=== PATIENT | female | born 1950 | race Caucasian/White ===

== ENCOUNTER 2023-05-18 10:02 | Outpatient (OUT) | payer MEDICARE, BC, SELFPAY ==
--- NOTE | 2023-05-18 10:13 | CT_ITS ---
The [address] [address] Patient Name: GHANSHYAM LEHMAN MRN: [id number] date: 1950 Sex: F Assigned Patient Location: CT Current Patient Location: CT Accession/Order Number: [id number] Exam Date: 05/18/2023 10:18 Report Date: 05/18/2023 10:52 At the request of: JARED ESPINAL Procedure: CT sinus wo con CT sinus wo con, 05/18/2023 10:18 AM EST INDICATION: Chronic Right Maxillary Sinusitis J32.0 COMPARISON: There is no appropriate prior study for comparison. TECHNIQUE: Axial images of 1 mm were obtained from the base of the skull to vertex without contrast with coronal and sagittal reconstruction. Dose reduction techniques were achieved by using automated exposure control and/or adjustment of mA and/or kV according to patient size and/or use of iterative reconstruction technique. FINDINGS: No abnormality under the marker over the right maxillary sinus is noted. The paranasal sinuses are clear. There is no pneumatization of the supraorbital anterior ethmoidal air cells. The frontal and sphenoethmoidal recesses are patent. No abnormality of no maxillary ostium and ethmoidal infundibulum is noted. The lamina papyracea is unremarkable bilaterally. Left Elizabeth bullosa is noted. There is no septal deviation. The carotid arteries have normal intracranial pathway. The fovea ethmoidalis is symmetric. No pneumatization of anterior clinoid process is noted. The olfactory fossa measures 3.7 mm . The optic nerves show bone coverage. There is no suspicious osteolytic or osteoblastic lesion. The visualized portions of orbits and mastoid air cells are unremarkable. No suprahyoid lymphadenopathy is noted. CT/CT sinus wo con IMPRESSION: No definite abnormality over the right maxillary sinus is noted. No underlying sinus disease. Electronically authenticated by: JAQUI BETANCOURT Date: 05/18/2023 10:52
== END 2023-05-18 10:03 | disposition home or self-care (01) ==
LOC: CT 10:02
PROVIDERS: PCP Family Medicine; Visit Provider Family Medicine
DX: J32.0 Chronic maxillary sinusitis (principal)
CPT/HCPCS: 70486

== ENCOUNTER 2023-06-01 10:15 | Outpatient (OUT) | payer MEDICARE, BC, SELFPAY ==
--- NOTE | 2023-06-01 10:20 | MM_ITS ---
Patient Name: GHANSHYAM LEHMAN MR#: [id number] : 1950 Exam Date: 06/01/2023 Ordering Doctor: DR Love Pendleton M.D. RADIOLOGY REPORT PROCEDURE: MM TOMOSYNTHESIS SCREENING BI COMPARISON: MG MAMM DIAGNOSTIC 3D CAL CAD, 05/30/2022. MG MAMM SCREEN 3D CAL CAD, 02/27/2021. MG MAMM SCREEN CAL W CAD, 06/28/2019. MG MAMM CAL SCRN W CAD DIG, 04/15/2016. INDICATIONS: Screening Calculator Name NCI Breast Cancer Risk Assessment Tool 5 Year Breast Cancer Risk 1.90% Lifetime Breast Cancer Risk 5.60% Personal Breast Cancer No Personal Ovarian Cancer No Treatments None Family Cancers Grandmother-maternal with ovarian cancer at age 55; Mother with uterine cancer at age 47; Aunt-maternal with breast cancer at age 65; Sister with metastatic,unknown primary cancer at age 64. LOCATION: The [facility] BREAST COMPOSITION: Scattered areas fibroglandular density. FINDINGS: DIAGNOSTIC CATEGORY 2--BENIGN FINDING: RIGHT BREAST: No significant suspicious finding. No significant change has occurred. LEFT BREAST: No significant suspicious finding. Scattered benign-appearing lymph nodes are present. No significant change has occurred. RECOMMENDATIONS: ROUTINE MAMMOGRAM AND CLINICAL EVALUATION IN 12 MONTHS. PLEASE NOTE: A NORMAL MAMMOGRAM DOES NOT EXCLUDE THE POSSIBILITY OF BREAST CANCER. A CLINICALLY SUSPICIOUS PALPABLE LUMP SHOULD BE BIOPSIED. Dictated by: Enio Soares M.D. on 06/02/2023 at 10:24 Approved by: Enio Soares M.D. on 06/02/2023 at 11:30
== END 2023-06-01 10:16 | disposition home or self-care (01) ==
LOC: MAMMO 10:15
PROVIDERS: PCP Family Medicine; Visit Provider Family Medicine
DX: Z12.31 Encounter for screening mammogram for malignant neoplasm of breast (principal); Z80.41 Family history of malignant neoplasm of ovary; Z80.8 Family history of malignant neoplasm of other organs or systems; Z80.3 Family history of malignant neoplasm of breast
CPT/HCPCS: 77063; 77067

== ENCOUNTER 2023-06-02 21:19 | Emergency (ER) | payer MEDICARE, BC, SELFPAY ==
[2023-06-02] VITALS (11 sets, daily range): BP systolic 147–165; BP diastolic 81–92; PULSE 72–90; RESP 14–26; TEMP 36.4; O2SAT 99; BMI 36.8
--- NOTE | 2023-06-02 22:02 | ECG_ITS ---
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
--- NOTE | 2023-06-02 22:02 | CT_ITS ---
The [address] [address] Patient Name: GHANSHYAM LEHMAN MRN: [id number] date: 1950 Sex: F Assigned Patient Location: ER Current Patient Location: ER Accession/Order Number: [id number] Exam Date: 06/02/2023 22:10 Report Date: 06/02/2023 22:44 At the request of: CARO MARKER Procedure: CT head/brain wo con EXAMINATION: CT head/brain wo con, , 06/02/2023 10:10 PM EST INDICATION: AMS HISTORY: Ordering Provider Reason for Exam: AMS Technologist Note: Additional: COMPARISON: None. TECHNIQUE: CT scan of the head was performed without IV contrast. CT dose reduction technique was used, including Automated Exposure Control. FINDINGS: Ventricles and sulci are normal in size and configuration. No extra-axial collection. No intracranial hemorrhage. No mass effect or edema. No CT evidence of large territorial infarction. Visualized paranasal sinuses are well aerated. Mastoids are clear. Calvarium is unremarkable. CT/CT head/brain wo con IMPRESSION: No intracranial hemorrhage or mass effect. Electronically authenticated by: MILA BERG Date: 06/02/2023 22:44
--- NOTE | 2023-06-02 22:02 | ED_ITS ---
HPI - Altered Mental Status General Chief Complaint: Altered Mental Status Stated Complaint: MEMORY ISSUES Time Seen by Provider: 06/02/23 21:28 Source: family Mode of arrival: walk-in History of Present Illness HPI narrative: This 72-year-old female is brought to the emergency department by her . The reports that the patient had a very busy day today and after dinner went into the shower, she takes extremely hot showers, after her shower she came downstairs and was awake, alert but amnestic to the events of the day. The states that she get up around 4 AM to go filler picker their granddaughter around 5 AM. She then went home and picked up the dog and took the dog to the groomer and took her to the eye doctor. She picked her up from the eye doctor and her dog from the groomer and went home and made dinner. They had dinner with her son. After dinner she went into the hot shower and then could not recall the events of the day. They did not have any sexual intercourse today. The patient does state that she had a ocular migraine today which is when she sees floaters in her eyes. This does not cause her any pain and has since resolved. She has no chest pain or shortness of breath. She does feel mildly nauseated. She denies any weakness numbness or tingling. She dressed herself after taking a shower and has been ambulatory since that time. There is been no recent falls. She has not had a fever. She does get routine eye exams and has not had any visual changes besides seeing floaters which occurs from time to time. Timing confirmed by: Reports spouse Related Data Home Medications Medication Instructions Recorded Confirmed atenolol 50 mg tablet 50 mg PO Q24H 06/02/23 06/02/23 Allergies Allergy/AdvReac Type Severity Reaction Status Date / Time No Known Drug Allergies Allergy Verified 06/02/23 21:29 Review of Systems ROS Status of ROS 10 or more systems reviewed and unremark able except as noted in history and below [facility] Social History Smoking status: Never smoker Exam Narrative Exam Narrative: Nurses note and vital signs reviewed and patient is not hypoxic.Blood pressure is mildly elevated at 165/92 General: Alert, pleasant, nontoxic female resting currently on the stretcher, she admits to feeling anxious, no respiratory distress, GCS 15 Skin: Warm, dry, no pallor noted. There is no rash noted. Head: Normocephalic, atraumatic Eye: Normal conjunctiva, no drainage, EOMI. PERRL, No diplopia, vision is grossly intact Ears, Nose, Mouth, and Throat: oral mucosa is moist. No swelling of the tongue, uvula or pharyngeal soft tissues, no facial droop Cardiovascular: Regular Rate and Rhythm S1S2, no murmurs, rubs or gallops, pulses are brisk and equal bilaterally Respiratory: Patient is in no distress, no accessory muscle use, lungs are clear to auscultation, no wheezing, rales or rhonchi Back: non-tender, no CVA tenderness bilaterally to percussion. GI: Normal bowel sounds, no tenderness to palpation, no masses appreciated. No rebound, guarding, or rigidity noted. 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, negative pronator drift, upper and lower extremity strength and sensation is intact, she is ambulatory with a steady gait, no facial droop Psychiatric: Cooperative, anxious Constitutional Vital Signs, click to edit/add: Last Vital Signs Temp 97.6 F 06/02/23 21:23 Pulse 73 06/02/23 23:47 Resp 22 06/02/23 23:47 BP 147/81 H 06/02/23 23:47 Pulse Ox 99 06/02/23 21:23 O2 Del Method Room Air 06/02/23 21:23 Course Vital Signs Vital signs: Vital Signs Temperature 97.6 F 06/02/23 21:23 Pulse Rate 90 06/02/23 21:23 Respiratory Rate 18 06/02/23 21:23 Blood Pressure 165/92 H 06/02/23 21:23 Pulse Oximetry 99 06/02/23 21:23 Oxygen Delivery Method Room Air 06/02/23 21:23 Temperature 97.6 F 06/02/23 21:23 Pulse Rate 73 06/02/23 23:47 Respiratory Rate 22 06/02/23 23:47 Blood Pressure 147/81 H 06/02/23 23:47 Pulse Oximetry 99 06/02/23 21:23 Oxygen Delivery Method Room Air 06/02/23 21:23 MDM - Altered Mental Status MDM Narrative Medical decision making narrative: This 72-year-old female was brought to the emergency department by her for evaluation of acute memory loss. The patient had an extremely busy day starting at 4 AM when she wakes up to filler picker her granddaughter at 7 AM. She apparently keeps her granddaughter in the morning until school and then took her dog just a groomer, her to the eye doctor, picked up her from the eye doctor and her dog from the groomer then went home and make dinner. She did the dishes after dinner, went upstairs to take a shower, came downstairs and was confused as to the events of the day. The patient did have what she describes as an ocular migraine earlier today when she sees floaters in her eyes. She states she is not having that now and it does not cause her any headaches. She is not having any blurred vision, slurred speech, focal weakness numbness or tingling. Her NIH stroke scale is 0. Clinically my suspicion was that she was having an episode of transient global amnesia. This was discussed with the patient and her . I explained to them that it was a diagnosis of exclusion and should resolve over a short period of time. The patient was taken to the CT scanner and had a CT scan of the brain done that was negative for acute findings. EKG was a normal sinus rhythm without acute findings. Routine labs were ordered and are reviewed. She has a normal troponin. Normal electrolytes. Normal white count and hemoglobin. Her urine did show 5-10 white blood cells per high-power field however there are screams epithelial cells in the urine and culture is pending. Clinically the patient is not experiencing any urinary tract infection symptoms. On reevaluation after IV fluids the patient was regaining her memory of the events of the day. The patient's son came to the emergency department and she then remembered him being present for dinner. She remembered taking the dog's to the groomer. She is less anxious and her memory is improving. I had a printed a description of transient global amnesia from the [facility] for the patient and her to review. They verbalize that this does sound like the event she had today. She will be discharged home to follow up closely with her family physician. I did encourage her to follow closely with Dr. Amaya if she would want to know about this episode and may request her to have additional workup related to the event. The patient and her are in agreement with this plan. My suspicion is that the patient was somewhat stressed due to the events of the day and then took a hot shower causing vasodilation and blood to be shunted away from her brain which causes the TGA. She does not appear to be having a stroke or any other acute medical emergency at this time and was discharged home. Medical Records Medical records narrative: [place] [address] CT Scan Report Signed Patient: GHANSHYAM LEHMAN MR#: [id number] : 1950 Acct:[id number] Age/Sex: 72 / F ADM Date: 06/02/23 Loc: ER Attending Dr: Ordering Physician: Carisa Reinoso Date of Service: 06/02/23 Procedure(s): CT head/brain wo con Accession Number(s): [id number] cc: Love Pendleton M.D.~ The [place] [id number] Patient Name: GHANSHYAM LEHMAN MRN: [id number] date: 1950 Sex: F Assigned Patient Location: ER Current Patient Location: ER Accession/Order Number: [id number] Exam Date: 06/02/2023 22:10 Report Date: 06/02/2023 22:44 At the request of: CARISA REINOSO Procedure: CT head/brain wo con EXAMINATION: CT head/brain wo con, , 06/02/2023 10:10 PM EST INDICATION: AMS HISTORY: Ordering Provider Reason for Exam: AMS Technologist Note: Additional: COMPARISON: None. TECHNIQUE: CT scan of the head was performed without IV contrast. CT dose reduction technique was used, including Automated Exposure Control. FINDINGS: Ventricles and sulci are normal in size and configuration. No extra-axial collection. No intracranial hemorrhage. No mass effect or edema. No CT evidence of large territorial infarction. Visualized paranasal sinuses are well aerated. Mastoids are clear. Calvarium is unremarkable. CT/CT head/brain wo con IMPRESSION: No intracranial hemorrhage or mass effect. Electronically authenticated by: MILA BERG Date: 06/02/2023 22:44 Lab Data Labs: Lab Results 06/02/23 06/02/23 Range/Units 21:45 22:09 WBC 9.2 (4.0-11.0) 10^3/uL RBC 4.80 (4.20-5.40) 10^6/uL Hgb 14.1 (12.0-16.0) g/dL Hct 43.3 (36.0-48.0) % MCV 90.2 (81.0-99.0) fL MCH 29.4 (26.7-34.0) pg MCHC 32.6 (29.9-35.2) g/dL RDW 12.8 (11.0-15.0) % Plt Count 214 (150-450) 10^3/uL MPV 9.2 L (9.5-13.5) fL Neut % (Auto) 48.2 (43.0-75.0) % Lymph % (Auto) 39.0 (20.5-60.0) % [place] % (Auto) 10.4 (1.7-12.0) % Eos % (Auto) 1.7 (0.9-7.0) % Baso % (Auto) 0.4 (0.2-2.0) % Neut # (Auto) 4.4 (1.4-6.5) 10^3/uL Lymph # (Auto) 3.6 (1.2-3.8) 10^3/uL [place] # (Auto) 1.0 H (0.3-0.8) 10^3/uL Eos # (Auto) 0.2 (0.0-0.7) 10^3/uL Baso # (Auto) 0.0 (0.0-0.1) 10^3/uL Abs Immat Gran (auto) 0.03 (0.00-0.03) 10^3/uL Imm/Tot Granulo (auto) 0.3 (0.0-0.5) % Sodium 141 (136-145) mmol/L Potassium 3.8 (3.5-5.1) mmol/L Chloride 104 (98-107) mmol/L Carbon Dioxide 27.8 (21.0-32.0) mmol/L Anion Gap 13.0 BUN 25.0 H (7.0-18.0) mg/dL Creatinine 0.94 (0.55-1.02) mg/dL Est GFR ( Amer) >60 (>=60) Est GFR (Non-Af Amer) 59 L (>=60) BUN/Creatinine Ratio 26.6 Glucose 112 H (74-106) mg/dL Calcium 8.9 (8.5-10.1) mg/dL Total Bilirubin 0.3 (0.2-1.0) mg/dL AST 16 (15-37) U/L ALT 23 (14-59) U/L Alkaline Phosphatase 101 (46-116) U/L Ammonia 14 (11-32) umol/L Troponin I High Sens 10.6 (4.0-51.3) pg/mL Total Protein 7.9 (6.4-8.2) g/dL Albumin 3.6 (3.4-5.0) g/dL Globulin 4.3 g/dL Albumin/Globulin Ratio 0.8 Urine Color Lt. yellow (YELLOW) Urine Clarity Clear (CLEAR) Urine pH 6.0 (5.0-9.0) Ur Specific [place] <=1.005 A (1.005-1.025) Urine Protein Negative (NEG/TRACE) mg/dL Urine Glucose (UA) Negative (NEGATIVE) mg/dL Urine Ketones Negative (NEGATIVE) mg/dL Urine Occult Blood Small A (NEGATIVE) Urine Nitrite Negative (NEGATIVE) Urine Bilirubin Negative (NEGATIVE) Urine Urobilinogen 0.2 (0.2-1.0) EU/dL Ur Leukocyte Esterase Small A (NEGATIVE) Urine RBC 0-2 (0-2) #/HPF Urine WBC 5-10 A (NONE SEEN) #/HPF Ur Squamous Epith Cells Few A (NONE/RARE) #/LPF Urine Crystals None seen (None Seen) #/HPF Urine Bacteria Trace A (NONE SEEN) #/HPF Urine Casts None seen (NONE SEEN) #/LPF Urine Mucus None seen (NONE SEEN) ECG Data Attestation: I personally reviewed and interpreted this ECG as follows: (Normal sinus rhythm 82 bpm, normal axis, normal intervals, no acute ST segment elevation or T-wave inversion) Discharge Plan Discharge Chief Complaint: Altered Mental Status Clinical Impression: Amnesia, global, transient, Altered mental status Patient Disposition: Home, Self-Care Time of Disposition Decision: 00:15 Condition: Good Prescriptions / Home Meds: No Action atenolol 50 mg tablet 50 mg PO Q24H Instructions: Transient Global Amnesia (ED) Stand Alone Forms: Portal Instructions Referrals: Love Pendleton MD [Primary Care Provider] - 1 week Discharge Date/Time: 06/03/23 00:43
[2023-06-02 22:08] LABS: Basophils Percent Auto 0.4 % (0.2-2.0); Eosinophils Absolute Auto 0.2 10^3/uL (0.0-0.7); Eosinophils Percent Auto 1.7 % (0.9-7.0); Hematocrit 43.3 % (36.0-48.0); Hemoglobin 14.1 g/dL (12.0-16.0); Immature Granulocytes Abs Auto 0.03 10^3/uL (0.00-0.03); Immature Granulocytes Pct Auto 0.3 % (0.0-0.5); Lymphocytes Absolute Auto 3.6 10^3/uL (1.2-3.8); Mean Corpuscular HGB Conc 32.6 g/dL (29.9-35.2); Mean Corpuscular Hemoglobin 29.4 pg (26.7-34.0); Mean Corpuscular Volume 90.2 fL (81.0-99.0); Mean Platelet Volume 9.2 fL (9.5-13.5); Monocytes Percent Auto 10.4 % (1.7-12.0); Neutrophils Absolute Auto 4.4 10^3/uL (1.4-6.5); Neutrophils Percent Auto 48.2 % (43.0-75.0); Platelet Count 214 10^3/uL (150-450); Red Cell Distribution Width 12.8 % (11.0-15.0); White Blood Count 9.2 10^3/uL (4.0-11.0)
[2023-06-02 22:09] LABS: Bilirubin Urine NEGATIVE (NEGATIVE); Blood Urine SMALL (NEGATIVE); Clarity Urine CLEAR (CLEAR); Color Urine LT. YELLOW (YELLOW); Glucose Urine UA NEGATIVE (NEGATIVE); Ketones Urine NEGATIVE (NEGATIVE); Leukocyte Esterase Urine SMALL (NEGATIVE); Nitrite Urine NEGATIVE (NEGATIVE); Protein Urine NEGATIVE (NEG/TRACE); Specific Gravity Urine <=1.005 (1.005-1.025); Urobilinogen Urine 0.2 EU/dL (0.2-1.0)
[2023-06-02 22:23] LABS: Alanine Aminotransferase 23 U/L (14-59); Albumin Globulin Ratio 0.8; Albumin Level 3.6 g/dL (3.4-5.0); Alkaline Phosphatase 101 U/L (46-116); Aspartate Amino Transferase 16 U/L (15-37); BUN Creatinine Ratio 26.6; Bacteria Urine TRACE #/HPF (NONE SEEN); Bilirubin Total 0.3 mg/dL (0.2-1.0); Calcium 8.9 mg/dL (8.5-10.1); Carbon Dioxide 27.8 mmol/L (21.0-32.0); Cast Seen? NONE SEEN #/LPF (NONE SEEN); Chloride 104 mmol/L (98-107); Crystals Seen? None Seen #/HPF (None Seen); Estimated GFR (African America >60 (>=60); Estimated GFR (Non-African Ame 59 (>=60); Globulin 4.3 g/dL; Glucose 112 mg/dL (74-106); Mucus Urine NONE SEEN (NONE SEEN); Potassium 3.8 mmol/L (3.5-5.1); RBC Urine 0-2 #/HPF (0-2); Sodium 141 mmol/L (136-145); Squamous Epithelial Cell Urine FEW #/LPF (NONE/RARE); Total Protein 7.9 g/dL (6.4-8.2); Troponin I High Sensitivity 10.6 pg/mL (4.0-51.3)
[2023-06-02 22:28] LABS: Ammonia 14 umol/L (11-32)
[2023-06-02] MEDS: ONDANSETRON PF 4 MG/2 ML VIAL IV (22:32)
[2023-06-02] MEDS: 0.9 % SODIUM CHLORIDE 1,000 ML 1000 ML IV (22:32)
--- NOTE | 2023-06-02 22:44 | PC.NURSE ---
patients spouse states patient was watching her son's band performance and couldn't remember that he had one today. states she also could was unsure about what day it was and things that she was doing tomorrow which is abdominal. patient a&o to person and place. when asked who the president is patient states she wants to say [place] . patients states they were very busy today, when asked what the patient did today she could not recall any of the many errands that she did. she believed she did not run any errands today. patient did remember what she had for dinner. denies any issues with urination or abnormalities. patients spouse concerened with dementia, states this is similar to how the patient mother was acting when she was diagnosed. patient only takes one mediation. no hx of blood sugar abnormalities. patient has steady gait, no facial discrepancies or slurred speech. states she feels nauseous and keeps staying she is scared that she does not remember. iv established, labs drawn
== END 2023-06-03 00:43 | disposition home or self-care (01) ==
PROVIDERS: Emergency Provider Emergency Medicine; PCP Family Medicine
DX: G45.4 Transient global amnesia (principal)
CPT/HCPCS: 36415; 70450; 80053; 81001; 82140; 84484; 85025; 93005; 96361; 96374; 99285

== ENCOUNTER 2024-06-08 09:46 | Outpatient (OUT) | payer MEDICARE, BC, SELFPAY ==
--- NOTE | 2024-06-08 09:49 | MM_ITS ---
Patient Name: GHANSHYAM LEHMAN MR#: [id number] : 1950 Exam Date: 06/08/2024 Ordering Doctor: DR Love Pendleton M.D. RADIOLOGY REPORT PROCEDURE: MM TOMOSYNTHESIS SCREENING BI COMPARISON: MG MAMM DIAGNOSTIC 3D CAL CAD, 05/30/2022. MM TOMOSYNTHESIS SCREENING BI, 06/01/2023. INDICATIONS: Screening Calculator Name NCI Breast Cancer Risk Assessment Tool 5 Year Breast Cancer Risk 1.90% Lifetime Breast Cancer Risk 5.40% Personal Breast Cancer No Personal Ovarian Cancer No Treatments None Family Cancers Grandmother-maternal with ovarian cancer at age 55; Mother with uterine cancer at age 47; Aunt-maternal with breast cancer at age 65; Sister with metastatic,unknown primary cancer at age 64. LOCATION: [facility] BREAST COMPOSITION: There are scattered areas of fibroglandular density. FINDINGS: DIAGNOSTIC CATEGORY 2--BENIGN FINDING. NO CHANGE FROM COMPARISON. Scattered benign-appearing calcifications are present. Scattered benign-appearing nodules are present. Scattered benign-appearing lymph nodes are present. RIGHT BREAST: No significant suspicious finding. LEFT BREAST: No significant suspicious finding. RECOMMENDATIONS: ROUTINE MAMMOGRAM AND CLINICAL EVALUATION IN 12 MONTHS. PLEASE NOTE: A NORMAL MAMMOGRAM DOES NOT EXCLUDE THE POSSIBILITY OF BREAST CANCER. A CLINICALLY SUSPICIOUS PALPABLE LUMP SHOULD BE BIOPSIED. Dictated by: Nawaf Mitchell MD on 06/08/2024 at 12:32 Approved by: Nawaf Mitchell MD on 06/08/2024 at 12:34
--- OUTSIDE RECORDS SUMMARY | 2024-06-08 09:49 | XMS_ITS | CCD ---
Author Organization [facility] Care Team Providers Care Ticket Clerk Name Role Phone PHYSICIAN, DEFAULT Unavailable Unavailable PHYSICIAN, DEFAULT Unavailable Unavailable REQUEST, DR NONE LISTED Admitting Unavaila ble REQUEST, DR DOWNING LISTED Attending Unavaila ble TEDDY, DR LOVE Baires Primary Care Unavailable REQUEST, DR DOWNING LISTED Consulting Unavaila humera PENDLETON, DR LOVE Baires Admitting Unavailable PENDLETON, DR LOVE Baires Attending Unavailable PENDLETON, DR LOVE Baires Primary Care Unavailable ERNIE, DR ENIO Tesfaye Consulting Unavailable PENDLETON, DR LOVE Baires Consulting Unavailable PendletonLove Allergies Allergy Classification Reported Allergen(s) Allergy Type Date of Onset Reaction(s) Facility (3 sources) patient allergy list reviewed by nurse or physicia Propensity to adverse reactions Comment:Done [facility] Other (3 sources) Allergies Reconciled Propensity to adverse reactions Unknown [facility] Other Medications Current Medications Medication Drug Class(es) Dates Sig (Normalized) Sig (Original) atenolol 50 mg oral tablet (6 sources) beta-Adrenergic Claire Start: 08-17-2023 End: 02-16-2024 take 1 tablet by mouth once daily Atenolol 50 mg tablet Active 50 MG PO Daily February 16, 2024 7:31am Start: 08-25-2022 take 1 tablet by bert th every twenty-four hours Atenolol 50 MG 1 tablet Orally Once a day for 90 days Jul, Active azithromycin 250 mg oral tablet (1 source) Macrolide Antimicrobial Start: 09-15-2022 Azithromycin 250 MG as directed Orally 2 tabs po today, then 1 tab daily x 4 more days for 5 Aug, Active ciprofloxacin 3 mg/ml ophthalmic solution (1 source) Quinolone Antimicrobial Start: 09-15-2022 Ciprofloxacin HCl 0. 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 Heart valve disorders (3 sources) Mitral valve disorder; Translations: [Nonrheumatic mitral (valve) prolapse] Onset: 05-28-2018 Chronic Hemorrhoids (3 sources) Internal hemorrhoids grade III; Translations: [Third degree hemorrhoids] Episodic Immunizations and screening for infectious disease (3 sources) Vaccination given; Translations: [Encounter for immunization] Episodic Inflammation; infection of eye (except that caused by tuberculosis or sexually transmitteddisease) (1 source) Unspecified acute conjunctivitis, left eye Episodic Nonmalignant breast conditions (11 sources) Mastodynia; Translations: [Pain of breast] Onset: 05-30-2022 Episodic Other circulatory disease (3 sources) Elevated blood-pressure reading without diagnosis of hypertension; Translations: [Elevated blood-pressure reading, without diagnosis of hypertension] Episodic Other non-traumatic joint disorders (7 sources) Arthralgia of the lower leg; Translations: [Pain in right knee] Episodic Other non-traumatic joint disorders (7 sources) Arthralgia of the ankle and/or foot; Translations: [Pain in right ankle and joints of right foot] Episodic Other nutritional; endocrine; and metabolic disorders (6 sources) Obese class II; Translations: [Body mass index 37.0-37.9, adult] Onset: 06-09-2017 Chronic Other screening for suspected conditions (not mental disorders or infectious disease) (3 sources) Encounter for screening mammogram for malignant neoplasm of breast; Translations: [Patient encounter status] Episodic Other skin disorders (3 sources) Localized swelling, mass and lump, lower limb, bilateral; Translations: [Localized swelling, mass and lump, lower limb, bilateral] Episodic Other upper respiratory infections (4 sources) Chronic right maxillary sinusitis; Translations: [Chronic maxillary sinusitis] Chronic Other upper respiratory infections (1 source) Acute maxillary sinusitis, unspecified Episodic Residual codes; unclassified (3 sources) Tobacco user; Translations: [Tobacco use] Episodic Transient cerebral ischemia (2 sources) Transient global amnesia; 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 Admission #: [id number] Family : Order #: [id number] CLICK HERE TO VIEW EXAM RADIOLOGY REPORT PROCEDURE: MAMMOGRAM DIAGNOSTIC 3D BILATERAL CAD COMPARISON: MG MAMM SCREEN CAL W CAD, 06/28/2019. MG MAMM SCREEN CAL W CAD, 06/24/2018. MG MAMM SCREEN CAL W CAD, 06/15/2017. MG MAMM SCREEN 3D CAL CAD, 02/27/2021. INDICATIONS: Pain of breast Calculator Name NCI Breast Cancer Risk Assessment Tool 5 Year Breast Cancer Risk 1.90% Lifetime Breast Cancer Risk 5.90% Personal Breast Cancer No Personal Ovarian Cancer No Treatments None Family Cancers Grandmother-maternal with ovarian cancer at age 55; Mother with uterine cancer at age 47; Aunt-maternal with breast cancer at age 65; Sister with metastatic,unknown primary cancer at age 64. LOCATION: [facility] BREAST COMPOSITION: Scattered areas fibroglandular density. FINDINGS: DIAGNOSTIC CATEGORY 2--BENIGN FINDING: RIGHT BREAST: No significant suspicious finding. No significant change has occurred. LEFT BREAST: No significant suspicious finding. Stable benign-appearing lymph node posterior upper-outer quadrant. No significant change has occurred. RECOMMENDATIONS: ROUTINE MAMMOGRAM AND CLINICAL EVALUATION IN 12 MONTHS. PLEASE NOTE: A NORMAL MAMMOGRAM DOES NOT EXCLUDE THE POSSIBILITY OF BREAST CANCER. A CLINICALLY SUSPICIOUS PALPABLE LUMP SHOULD BE BIOPSIED. Dictated by: Enio Soares M.D. on 05/30/2022 at 10:54 Approved by: Enio Soares M.D. on 05/30/2022 at 11:00 Normal [facility] CBC AUTO DIFFon 05-17-2022 BASO # 0.0 103/ul Normal 0.0-0.1 [facility] Comment on above: Performed By: #### D ATCBC #### [facility] [address] [place] [address] Dr. Quincy Rock Basophils/100 WBC (Bld) 0.4 % Normal 0.2-2.0 [facility] Comment on above: Performed By: #### D ATCBC #### [facility] [address] [place] [address] Dr. Quincy Rock EO # 0.1 103/ul Normal 0.0-0.7 [facility] Comment on above: Performed By: #### D ATCBC #### [facility] [address] [place] [address] Dr. Quincy Rock Eosinophils/100 WBC (Bld) 1.8 % Normal 0.9-7.0 [facility] Comment on above: Performed By: #### D ATCBC #### [facility] [address] [place] [address] Dr. Quincy Rock Erythrocyte distribution width (RBC) [Ratio] 12.9 % Normal 11.0-15.0 [facility] Comment on above: Performed By: #### D ATCBC #### [facility] [address] [place] [address] Dr. Quincy Rock Hematocrit (Bld) [Volume fraction] 42.3 % Normal 36.0-48.0 [facility] Comment on above: Performed By: #### D ATCBC #### [facility] [address] [place] [address] Dr. Quincy Rock Hemoglobin (Bld) [Mass/Vol] 14.0 g/dL Normal 12.0-16.0 [facility] Comment on above: Performed By: #### D ATCBC #### [facility] [address] [place] [address] Dr. Quincy Rock IG # 0.01 10e3/ul Normal 0.00-0.03 [facility] Comment on above: Performed By: #### D ATCBC #### [facility] [address] [address] [address] Quincy Rock IG % 0.2 % Normal 0.0-0.5 [facility] Comment on above: Performed By: #### D ATCBC #### [facility] [address] [address] [address] Quincy Rock LYMPH # 2.2 103/ul Normal 1.2-3.8 [facility] Comment on above: Performed By: #### D ATCBC #### [facility] [address] [place] [address] Dr. Quincy Rock Lymphocytes/100 WBC (Bld) 39.7 % Normal 20.5-60.0 [facility] Comment on above: Performed By: #### D ATCBC #### [facility] [address] [place] [address] Dr. Quincy Rock MCH (RBC) [Entitic mass] 28.8 pg Normal 26.7-34.0 [facility] Comment on above: Performed By: #### D ATCBC #### [facility] [address] [place] [address] Dr. Quincy Rock MCHC (RBC) [Mass/Vol] 33.1 g/dL Normal 29.9-35.2 [facility] Comment on above: Performed By: #### D ATCBC #### [facility] [address] [place] [address] Dr. Quincy Rock MCV (RBC) [Entitic vol] 87.0 fL Normal 81.0-99.0 [facility] Comment on above: Performed By: #### D ATCBC #### [facility] [address] [place] [address] Dr. Quincy Rock MONO # 0.5 103/ul Normal 0.3-0.8 [facility] Comment on above: Performed By: #### D ATCBC #### [facility] [address] [place] [address] Dr. Quincy Rock Monocytes/100 WBC (Bld) 8.5 % Normal 1.7-12.0 [facility] Comment on above: Performed By: #### D ATCBC #### [facility] [address] [address] [address] Quincy Rock NEUT # 2.7 103/ul Normal 1.4-6.5 [facility] Comment on above: Performed By: #### D ATCBC #### [facility] [address] [address] [address] Quincy Rock Neutrophils/100 WBC (Bld) 49.4 % Normal 43.0-75.0 [facility] Comment on above: Performed By: #### D ATCBC #### [facility] [address] [address] [address] Quincy Rock Platelet mean volume (Bld) [Entitic vol] 8.9 fL Critically low 9.5-13.5 [facility] Comment on above: Performed By: #### D ATCBC #### [facility] [address] [address] [address] Quincy Rock PLT 212 103/ul Normal 150-450 [facility] Comment on above: Performed By: #### D ATCBC #### [facility] [address] [address] [address] Quincy Rock RBC 4.86 106/ul Normal 4.20-5.40 [facility] Comment on above: Performed By: #### D ATCBC #### [facility] [address] [address] [address] Quincy Rock WBC 5.4 103/ul Normal 4.0-11.0 [facility] Comment on above: Performed By: #### D ATCBC #### [facility] [address] [address] [address] Quincy Rock CLEMENTINE- BMP WITH LIPIDon 2021 Anion gap [Moles/Vol] 8.8 mmol/L Normal [facility] Comment on above: Performed By: #### D ATBMP #### [facility] [address] [address] [address] Quincy Rock Calcium [Mass/Vol] 8.9 mg/dL Normal 8.5-10.1 [facility] Comment on above: Performed By: #### D ATBMP #### [facility] [address] [address] [address] Quincy Rock Chloride [Moles/Vol] 105 mmol/L Normal 98-107 [facility] Comment on above: Performed By: #### D ATBMP #### [facility] [address] [address] [address] Quincy Rock Cholesterol [Mass/Vol] 252 mg/dL Critically high <=200 [facility] Comment on above: Performed By: #### D ATBMP #### [facility] [address] [address] [address] Quincy Rock Cholesterol in HDL [Mass/Vol] 54 mg/dL Normal 40-60 [facility] Comment on above: Performed By: #### D ATBMP #### [facility] [address] [address] [address] Quincy Rock Cholesterol in LDL [Mass/Vol] 170.2 mg/dL Normal [facility] Comment on above: Performed By: #### D ATBMP #### [facility] [address] [address] [address] Quincy Rock CO2 [Moles/Vol] 30.2 mmol/L Normal 21.0-32.0 [facility] Comment on above: Performed By: #### D ATBMP #### [facility] [address] [address] [address] Quincy Rock Creatinine [Mass/Vol] 0.68 mg/dL Normal 0.55-1.02 [facility] Comment on above: Performed By: #### D ATBMP #### [facility] [address] [address] [address] Quincy Rock EGFR-AF BHUTANESE >60 Normal >=60 [facility] Comment on above: Performed By: #### D ATBMP #### [facility] [address] [address] [address] Quincy Rock EGFR-NON AF BHUTANESE >60 Normal >=60 [facility] Comment on above: Performed By: #### D ATBMP #### [facility] [address] [address] [address] Quincy Rock Glucose [Mass/Vol] 101 mg/dL Normal 74-106 [facility] Comment on above: Performed By: #### D ATBMP #### [facility] [address] [address] [address] Quincy Rock HDL NORMAL > or = 60 mg/dl - LOW CARDIOVASCULAR RISK <40 mg/dl - HIGH CARDIOVASCULAR RISK Normal [facility] Comment on above: Performed By: #### D ATBMP #### [facility] [address] [address] [address] Quincy Rock LDL CALC NORMAL SEE BELOW Normal [facility] Comment on above: Result Comment: <100 mg/dl OPTIMAL 100 - 129 mg/dl NEAR OR ABOVE OPTIMAL 130 - 159 mg/dl BORDERLINE HIGH 160 - 189 mg/dl HIGH >190 mg/dl VERY HIGH Performed By: #### D ATBMP #### [facility] [address] [address] [address] Quincy Rock Potassium [Moles/Vol] 4.0 mmol/L Normal 3.5-5.1 [facility] Comment on above: Performed By: #### D ATBMP #### [facility] [address] [address] [address] Quincy Rock Sodium [Moles/Vol] 140 mmol/L Normal 136-145 [facility] Comment on above: Performed By: #### D ATBMP #### [facility] [address] [address] [address] Quincy Rock Triglyceride [Mass/Vol] 139 mg/dL Normal <=150 [facility] Comment on above: Performed By: #### D ATBMP #### [facility] [address] [address] [address] Quincy Rock Urea nitrogen [Mass/Vol] 17.0 mg/dL Normal 7.0-18.0 [facility] Comment on above: Performed By: #### D ATBMP #### [facility] [address] [address] [address] Quincy Rock Urea nitrogen/Creatinine [Mass ratio] 25.0 mg/mg Normal [facility] Comment on above: Performed By: #### D ATBMP #### [facility] [address] [address] [address] Quincy Rock VLDL CALC 27.8 mg/dL Normal [facility] Comment on above: Performed By: #### D ATBMP #### [facility] [address] [address] [address] Quincy Rock Outside Colonoscopyon 2019 Outside Colonoscopy [id number] #1.00CD:127 [facility] Lab Reportson 01-09-2020 Lab Reports [id number] #1.00CD:127 [facility] Lab Reports [id number] #1.00CD:127 [facility] Facesheeton 12-23-2019 Facesheet [id number] #1.00CD:127 [facility] Ambulatory Clinical Summaryo 12-20-2019 Ambulatory Clinical Summary {[id number]}CD:[id number] [facility] Physician Referralon 020 Physician Referral [id number]# 1.00CD:127 [facility] Vital Signs Date Time Vital Sign Value Performing Clinician Facility 05-12-2024 10:01-050 Body height 152.4 cm [facility] 05-12-2024 10:01-0500 Body mass index (BMI) [Ratio] 38 kg/m2 [facility] 05-12-2024 10:01-0500 Body weight 88.45 kg [facility] 05-12-2024 10:01-0500 Diastolic blood pressure 70 mm[Hg] [facility] 05-12-2024 10:01-0500 Heart rate 78 /min [facility] 05-12-2024 10:01-0500 Systolic blood pressure 130 mm[Hg] [facility] 06-04-2023 10:00-0500 Body height 152.4 cm Love Pendleton Other [facility] Other 06-04-2023 10:00-0500 Body mass index (BMI) [Ratio] 37.77 kg/m2 Love Pendleton Other [facility] Other 06-04-2023 10:00-0500 Body weight 87.73 kg Love Pendleton Other [facility] Other 06-04-2023 10:00-0500 Diastolic blood pressure 74 mm[Hg] Love Pendleton Other [facility] Other 06-04-2023 10:00-0500 Systolic blood pressure 120 mm[Hg] Love Pendleton Other [facility] Other 05-11-2023 10:00-0500 Body height 152.4 cm Love Pendleton Other [facility] Other 05-11-2023 10:00-0500 Body mass index (BMI) [Ratio] 37.77 kg/m2 Love Pendleton Other [facility] Other 05-11-2023 10:00-0500 Body weight 87.73 kg Love Pendleton Other [facility] Other 05-11-2023 10:00-0500 Diastolic blood pressure 84 mm[Hg] Love Pendleton Other [facility] Other 05-11-2023 10:00-0500 Systolic blood pressure 136 mm[Hg] Love Pendleton Other [facility] Other 09-15-2022 15:45-0400 Body height 152.4 cm Love Pendleton Other [facility] Other 09-15-2022 15:45-0400 Body mass index (BMI) [Ratio] 37.49 kg/m2 Love Pendleton Other [facility] Other 09-15-2022 15:45-0400 Body weight 87.09 kg Love Pendleton Other [facility] Other 09-15-2022 15:45-0400 Diastolic blood pressure 78 mm[Hg] Love Pendleton Other [facility] Other 09-15-2022 15:45-0400 SaO2% (BldA) [Mass fraction] 97 % Love Pendleton Other [facility] Other 09-15-2022 15:45-0400 Systolic blood pressure 138 mm[Hg] Love Pendleton Other [facility] Other Encounters Encounter Date Encounter Type Care Provider Facility Start: 05-12-2024 End: 05-12-2024 ambulatory [facility] Work Phone: Start: 05-12-2024 End: 05-12-2024 Patient encounter procedure [facility] Physician [facility] Work Phone: Start: 05-05-2024 Non-patient / Non-visit [facility] Work Phone: Start: 06-04-2023 End: 06-04-2023 ambulatory Love Pendleton Other [facility] Other Start: 06-04-2023 Office outpatient vi sit 15 minutes Love Pendleton [facility] Start: 05-19-2023 End: 05-19-2023 ambulatory Love Pendleton Other [facility] Other Start: 05-19-2023 Telephone encounter Love Teddy [facility] Start: 05-11-2023 End: 05-11-2023 ambulatory Love Pendleton Other [facility] Other Start: 05-11-2023 Patient encounter procedure Love Teddy [facility] Start: 09-15-2022 End: 09-15-2022 ambulatory Love Pendleton Other [facility] Other Start: 09-15-2022 Office outpatient vi sit 15 minutes Love Pendleton [facility] Start: 05-30-2022 End: 05-31-[address] LOVE PENDLETON Facility: Start: 05-17-2022 End: 05-18-2022 ambulatory NONE LISTED REQUEST Facility: Start: 05-01-2022 Adult health examination Love Pendleton Other [facility] Other Start: 06-07-2018 End: 06-08-2018 Patient encounter procedure DEFAULT PHYSICIAN Facility:[facility] Procedures Date Procedure Procedure Detail Performing Clinician Start: 03-12-2016 Screening mammography Lemuel Pendleton Other Start: 04-17-2014 General examination of patient Love Teddy Other Screening for malign ant neoplasm of breast Love Teddy Other Plan of Treatment Date Care Activity Detail Author MG Breast - bilateral Screening [facility] Immunizations Immunization Date Immunization Notes Care Provider Fa cility 04-22-2022 influenza virus vaccine, split virus (incl. purified surface antigen) Love Pendleton Other [facility] Other 04-22-2022 influenza virus vaccine, unspecified formulation [facility] 03-20-2022 COVID-19 Pfizer (Pediatric) Love Pendleton Other [facility] 04-08-2021 influenza virus vaccine, split virus (incl. purified surface antigen) Love Pendleton Other [employer] [facility] Other 04-08-2021 influenza virus vaccine, unspecified formulation [facility] 03-15-2020 influenza virus vaccine, split virus (incl. purified surface antigen) Love Pendleton Other [employer] [facility] Other 03-15-2020 influenza virus vaccine, unspecified formulation [facility] 06-20-2019 pneumococcal polysaccharide vaccine, 23 valent Love Pendleton Other [facility] 06-04-2018 pneumococcal conjuga te vaccine, 13 valent Love Pendleton Other [facility] NEGATED: Highlighted row has not occurred!06-24-2019 pneumococcal polysaccharide vaccine, 23 valent Love Pendleton Other [facility] Prior Knowledge Other Payers Date Payer Category Payer Medicare [id number] 1957 Self-pay 1957 Unknown [id number] 1950 Unknown [id number] 1950 Unknown [id number] [id number] Unknown Unknown [id number] [id number] Social History Date Type Detail Facility Unknown if ever smoked [facility] Other Sex Assigned At Sex Assigned At Bir th [employer] [facility] Other Tobacco smoking status NHIS Unknown if ever smoked [facility] Work Phone: Start: 05-12-2024 Sex Female (finding) [facility] Start: 1950 Sex Assigned At Female F [facility] Evaluation note 06-04-2023 Note Date & Type Note Facility 06-04-2023 Evaluation note Encounter Date Diagnosis Assessment Notes May, 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 Pt and agree to neurology referral. Notes increased stress on the day this happened, it was a particularly busy day, but nothing bad happened. 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 Had this episode prior to the TGA onset on Thursday. Will address w Neurology to be complete. [facility] Other Evaluation note 05-11-2023 Note Date & Type Note Facility 05-11-2023 Evaluation note Encounter Date Diagnosis Assessment Notes Apr, Medicare annual wellness visit, subsequent (ICD-10 - Z00.00) Personalized health advice was given to the beneficiary including a written plan for screenings discussed and provided. Advanced care planning reviewed and/or information given as requested. Additional counseling was provided here today in regards to, [ ]. The above visit was performed by [ ], under direct supervision of [ ]. Document reviewed and amended by provider signed below. Apr, Chronic right maxillary sinusitis (ICD-10 - J32.0) Pt notes chronic pain through maxillary area without major congestion, fevers or chills. Will check with imaging to r/o cancer. Apr, Screening mammogram, encounter for (ICD-10 - Z12.31) [facility] Other Evaluation note 09-15-2022 Note Date & Type Note Facility 09-15-2022 Evaluation note Encounter Date Diagnosis Assessment Notes Aug, Acute non-recurrent maxillary sinusitis (ICD-10 - J01.00) Sinus infections can be triggered by a secondary infection from a viral URI or even seasonal allergies. Take medications as directed. Use saline nasal spray prior to presciption nasal spray. Take medications as directed, and complete all doses of medication even if you start to feel better. Patient advised to follow up with PCP if symptoms persist or worsen. Patient verbalized understanding and agreement with treatment plan. Aug, Acute bacterial conjunctivitis of left eye (ICD-10 - H10.32) [place] [facility] is contagious. Wash hands frequently and try not to rub eyes. Use warm wash cloth to keep them clean. Use drops until eyes are clear then 3 more days Aug, Hyperlipemia (ICD-10 - E78.5) advised she can take a break for lipitor and eval if her L upper arm tenderness improves. [facility] Other Evaluation note Note Date & Type Note Facility Evaluation note No Information [employer] Other Evaluation note Note Date & Type Note Facility Evaluation note Diagnosis Onset Date Resolution Screening mammogram for breast cancer acute May 12, 2024 9:55am [facility] Work Phone: History general Narrative - Reported Note Date & Type Note Facility History general Narrative - Reported Type Medical History Hyperlipemia Medical History Hypertension Medical History Knee pain, right anterior Medical History Breast pain, right Medical History Ankle pain, right Medical History LEG MASS, BILATERAL Surgical History HERNIA REPAIR Surgical History GERI/BSO Surgical History ENDOMETRIOSIS Surgical History BTL D/C Surgical History ARTHROSCOPY RIGHT KNEE 2004 Surgical History TONGUE BIOPSY -BENIGN 2017 Hospitalization History SEE SURGICAL HX [facility] Other History general Narrative - Reported Note Date & Type Note Facility History general Narrative - Reported Type Medical History Hyperlipemia Medical History Hypertension Medical History Knee pain, right anterior Medical History Breast pain, right Medical History Ankle pain, right Medical History LEG MASS, BILATERAL Medical History Transient Global Amnesia Surgical History HERNIA REPAIR Surgical History GERI/BSO Surgical History ENDOMETRIOSIS Surgical History BTL D/C Surgical History ARTHROSCOPY RIGHT KNEE 2004 Surgical History TONGUE BIOPSY -BENIGN 2017 Hospitalization History SEE SURGICAL HX [facility] Other Summary Purpose Family History Relationship Condition Age at Onset Recorded Date/T dinah father Heart disease Unknown Unknown Hypertension Unknown mother Unknown Heart disease Unknown Advance Directives Advance Directive Response Recorded Date/ Time Advance Directives No July 29, 2023 10:10am Reason for Referral Reason [facility], ER report from 06/03 scanned in chart Diagnosis 1 Transient global amn esia (G45.4) Referral Organization [facility] Referring Provider First Name Love Referring Provider Last Name Teddy Referring Provider Specialty Family [facility] Referred Organization [facility] Referred Provider Enio Red Referred Address [address] [place] [address] [place], [place],[address] Referred Provider Specialty Neurology Referral Priority Routine Chief Complaint and Reason for Visit Chief Complaint Admit Date CC Adult Risk Stratification April 10:32am MEDICARE WELLNESS May 12, 2024 9:55am Reason for Visit Admit Date Screening mammogram for breast cancer No vember 2023 9:55am Additional Source Comments INFORMATION SOURCE (unrecogn ized section and content) DATE CREATED AUTHOR 06/09/2018 [facility] DATE CREATED AUTHOR AUTHOR'S ORGANIZ ATION 01/21/2020 [facility] DATE CREATED AUTHOR AUTHOR'S ORGANIZ ATION 06/07/2022 [facility] REASON FOR VISIT (unrecogniz ed section and content) SORE THROAT, [facility] Care Teams (unrecognized sec tion and content) Team Status: Active Member Role Status Dates Love Pendleton MD Primary Care Provider Active Team Status: Active Member Role Status Dates Love Pendleton MD Primary Care Provide r, Attending Provider Active Start: May 05, 2024 Team Status: Inactive Member Role Status Dates Love Pendleton MD Primary Care Provide r, Attending Provider Active Start: May 12, 2024 End: May 12, 2024 Goals (unrecognized section and content) Goals may be documented in a n alternate section FOR RECORDS PERTAINING TO PATIENTS WHO ARE OR HAVE BEEN ENROLLED IN A CHEMICAL DEPENDENCY/SUBSTANCEABUSE PROGRAM, SOME INFORMATION MAY BE OMITTED. This clinical summary was aggregated from multiple sources. Caution should be exercised in using it in the provision of clinical care. This summary normalizes information from multiple sources, and as a consequence, information in this document may materially change the coding, format and clinical context of patient data. In addition, data may be omitted in some cases. CLINICAL DECISIONS SHOULD BE BASED ON THE PRIMARY CLINICAL RECORDS. [employer] provides no warranty or guarantee of the accuracy or completeness of information in this document.
== END 2024-06-08 09:47 | disposition home or self-care (01) ==
LOC: MAMMO 09:46
PROVIDERS: PCP Family Medicine; Visit Provider Family Medicine
DX: Z12.31 Encounter for screening mammogram for malignant neoplasm of breast (principal); Z80.41 Family history of malignant neoplasm of ovary; Z80.8 Family history of malignant neoplasm of other organs or systems; Z80.3 Family history of malignant neoplasm of breast; Z80.9 Family history of malignant neoplasm, unspecified
CPT/HCPCS: 77063; 77067

== ENCOUNTER 2024-06-16 10:47 | Outpatient (RCR) | payer MEDICARE, BC, SELFPAY | END 2024-06-28 15:04 | disposition home or self-care (01) | LOC: PT 10:47 | PROVIDERS: PCP Family Medicine; Visit Provider Family Medicine | DX: M25.512 Pain in left shoulder (principal) | CPT/HCPCS: 97110; 97161 ==

== ENCOUNTER 2024-06-29 09:48 | Outpatient (RCR) | payer MEDICARE, BC, SELFPAY | END 2024-07-13 13:33 | disposition home or self-care (01) | LOC: PT 09:48 | PROVIDERS: PCP Family Medicine; Visit Provider Family Medicine | DX: M25.512 Pain in left shoulder (principal) | CPT/HCPCS: 97110; 97140 ==

== ENCOUNTER 2025-05-16 08:42 | Outpatient (OUT) | payer MEDICARE, BC, SELFPAY ==
--- NOTE | 2025-05-16 08:49 | MM_ITS ---
Patient Name: GHANSHYAM LEHMAN MR#: [id number] : 1950 Exam Date: 05/16/2025 Ordering Doctor: DR VISHAL SOTO . RADIOLOGY REPORT PROCEDURE: MM TOMOSYNTHESIS DIAGNOSTIC BI, 05/16/2025, 08:41 US BREAST RT LIMITED, 05/16/2025, 09:44 COMPARISON: MM TOMOSYNTHESIS SCREENING BI, 06/08/2024. MM TOMOSYNTHESIS SCREENING BI, 06/01/2023. INDICATIONS: right breast mass, breast soreness Calculator Name NCI Breast Cancer Risk Assessment Tool 5 Year Breast Cancer Risk 2.00% Lifetime Breast Cancer Risk 5.10% Personal Breast Cancer No Personal Ovarian Cancer No Treatments None Family Cancers Grandmother-maternal with ovarian cancer at age 55; Mother with uterine cancer at age 47; Aunt-maternal with breast cancer at age 65; Sister with metastatic,unknown primary cancer at age 64. LOCATION: [facility] BREAST COMPOSITION: There are scattered areas of fibroglandular density. FINDINGS: DIAGNOSTIC CATEGORY 1--NEGATIVE. RIGHT BREAST: No significant suspicious finding. LEFT BREAST: No significant suspicious finding. Ultrasound imaging at the 1 o'clock position of the right breast in the area of concern demonstrates no solid mass or cyst . RECOMMENDATIONS: ROUTINE MAMMOGRAM IN 12 MONTHS. The patient's breast mass should be handled on a clinical basis . Dictated by: Aristides Ward DO on 05/16/2025 at 10:06 Approved by: Aristides Ward DO on 05/16/2025 at 10:12
--- NOTE | 2025-05-16 09:42 | US_ITS ---
Patient Name: GHANSHYAM LEHMAN MR#: [id number] : 1950 Exam Date: 05/16/2025 Ordering Doctor: DR VISHAL SOTO . RADIOLOGY REPORT PROCEDURE: MM TOMOSYNTHESIS DIAGNOSTIC BI, 05/16/2025, 08:41 US BREAST RT LIMITED, 05/16/2025, 09:44 COMPARISON: MM TOMOSYNTHESIS SCREENING BI, 06/08/2024. MM TOMOSYNTHESIS SCREENING BI, 06/01/2023. INDICATIONS: right breast mass, breast soreness Calculator Name NCI Breast Cancer Risk Assessment Tool 5 Year Breast Cancer Risk 2.00% Lifetime Breast Cancer Risk 5.10% Personal Breast Cancer No Personal Ovarian Cancer No Treatments None Family Cancers Grandmother-maternal with ovarian cancer at age 55; Mother with uterine cancer at age 47; Aunt-maternal with breast cancer at age 65; Sister with metastatic,unknown primary cancer at age 64. LOCATION: [facility] BREAST COMPOSITION: There are scattered areas of fibroglandular density. FINDINGS: DIAGNOSTIC CATEGORY 1--NEGATIVE. RIGHT BREAST: No significant suspicious finding. LEFT BREAST: No significant suspicious finding. Ultrasound imaging at the 1 o'clock position of the right breast in the area of concern demonstrates no solid mass or cyst . RECOMMENDATIONS: ROUTINE MAMMOGRAM IN 12 MONTHS. The patient's breast mass should be handled on a clinical basis . Dictated by: Aristides Ward DO on 05/16/2025 at 10:06 Approved by: Aristides Ward DO on 05/16/2025 at 10:12
== END 2025-05-16 08:43 | disposition home or self-care (01) ==
LOC: MAMMO 08:42
PROVIDERS: PCP Family Medicine; Visit Provider Obstetrics & Gynecology
DX: N64.4 Mastodynia (principal); N63.10 Unspecified lump in the right breast, unspecified quadrant; Z80.41 Family history of malignant neoplasm of ovary; Z80.8 Family history of malignant neoplasm of other organs or systems; Z80.3 Family history of malignant neoplasm of breast
CPT/HCPCS: 76642; 77066; G0279